=== PATIENT | male | born 1930 | race Caucasian/White ===

== ENCOUNTER 2016-08-25 12:12 | Inpatient (IN) | payer MEDICARE, OTHER ==
[~2016-08-25] VITALS: Ht 160 cm; Wt 65.0 kg
[2016-08-25] MEDS ORDERED: SODIUM CHLORIDE FLUSH 10 ML SYR IV PRN (12:45)
[2016-08-25] MEDS ORDERED: SODIUM CHLORIDE FLUSH 3 ML SYR IV PRN (12:45)
[2016-08-25 13:05] LABS: BASOPHILS % (AUTO) 0 % (0-2); EOSINOPHILS # (AUTO) 0.1 10^3uL; EOSINOPHILS % (AUTO) 1 % (0-4); LYMPHOCYTES # (AUTO) 1.1 X10^3; MEAN CORPUSCULAR HEMOGLOBIN 31.5 PG (26.0-34.0); MEAN CORPUSCULAR HGB CONC 32.4 g/dL (31.0-37.0); MEAN CORPUSCULAR VOLUME 97 FL (80-100); MEAN PLATELET VOLUME 10.6 FL (6.0-9.5); MONOCYTES # (AUTO) 1.2 X10^3; MONOCYTES % (AUTO) 12 % (3-11); NEUTROPHILS # (AUTO) 7.5 X10^3; NEUTROPHILS % (AUTO) 76 % (51-67); PLATELET COUNT 203 10^3uL (150-450); WHITE BLOOD COUNT 9.96 10^3uL (4.0-11.0)
[2016-08-25 13:15] LABS: ALBUMIN 4.4 g/dL (3.4-5.0); ANION GAP 16.4 MEQ/L (3-15); CALCULATED IONIZED CALCIUM 4.1 mg/dL (3.8-4.6); TOTAL PROTEIN 7.2 g/dL (6.4-8.5)
--- NOTE | 2016-08-25 14:01 | NUR ---
URINAL PLACED. PT STATES DIFFICULT TO URINATE BUT WILL LEAVE IN PLACE HE HAS THE URGE TO GO. CL
[2016-08-25 14:41] LABS: BILIRUBIN,URINE Negative (Negative); CLARITY,URINE Clear; COLOR,URINE Yellow; GLUCOSE, URINE (UA) Negative (Negative); LEUKOCYTE ESTERASE ,URINE Negative (Negative); UROBILINOGEN,URINE 0.2 mg/dL (0.2-1.0)
--- NOTE | 2016-08-25 14:45 | NUR ---
DR TIM TALKS WITH DR POSEY RE PT. FURTHER ORDERS NOTED. CL
--- NOTE | 2016-08-25 16:22 | NUR ---
Pt admitted to room 310 at this time via w/c from ED accompanied by Faisal HAZEL. Alert/oriented x4.
[2016-08-25 16:33] VITALS: BP 126/51
[2016-08-25] MEDS ORDERED: ALBUTEROL 0.083% NEB SOLUTION 2.5 MG/3 ML VIAL INH PRN (17:00)
[2016-08-25] MEDS ORDERED: MAGNESIUM HYDROXIDE 80MG/ML (MILK OF MAGNESIA) 30 ML UDC PO PRN (17:00)
[2016-08-25] MEDS ORDERED: methylPREDNISolone 125 MG (Solu-MEDROL) VIAL IV ONE (17:00)
[2016-08-25] MEDS ORDERED: HYDROcodone/APAP 7.5 MG/325 MG (NORCO) TABLET PO PRN (17:00)
[2016-08-25] MEDS ORDERED: PROMETHAZINE HCL INJ 12.5 MG in SODIUM CHLORIDE 25 ML IV PRN (17:00)
[2016-08-25] MEDS ORDERED: CALCIUM CARBONATE CHEWABLE 300 MG (TUMS) TABLET PO PRN ×2 (17:00)
[2016-08-25] MEDS ORDERED: DOCUSATE SODIUM 100 MG (COLACE) CAP PO PRN (17:00)
[2016-08-25] MEDS ORDERED: POLYETHYLENE GLYCOL 17 GM (MIRALAX) PACKET PO PRN (17:00)
[2016-08-25] MEDS ORDERED: MAG HYDROX/AL HYDROX/SIMETH 200-200-20/5 ML (MAG-AL PLUS) 30 ML UDC PO PRN ×2 (17:00)
[2016-08-25] MEDS ORDERED: ONDANSETRON 4 MG (ZOFRAN) ORAL DISSOLVE TAB PO PRN (17:00)
[2016-08-25] MEDS: POTASSIUM CHLORIDE ER 20 MEQ TABLET PO SCH (17:35)
--- NOTE | 2016-08-25 18:30 | NUR ---
Pt sitting upright on edge of bed- eating supper meal, watching tv Solu-medrol x1 IV given as ordered. Remains on chronic 2L nc- states he wears 2L O2 at all times. IV SL intact to RFA- 18g. Yellow gown/socks in place for pt safety. calls appropriately. Has been talking to and daughter on cell phone. Will cont to monitor patient closely.
[2016-08-25] MEDS: DOXYCYCLINE 100 MG (VIBRAMYCIN) TABLET PO SCH (18:54)
[2016-08-25] MEDS ORDERED: FLUTICASONE/SALMETEROL HFA 115/21 MCG (ADVAIR) COMMON CANNISTER INH ONE (19:03)
[2016-08-25] MEDS: ALBUTEROL/IPRATROPIUM 3MG-0.5MG/3ML (DUONEB) NEB VIAL INH SCH ×2 (19:07→23:01)
[2016-08-25] MEDS: FLUTICASONE/SALMETEROL HFA 115/21 MCG (ADVAIR) COMMON CANNISTER INH SCH (19:08)
--- NOTE | 2016-08-25 19:12 | NUR ---
Pt found sitting inn his chair on 2 l/min NC equal to home use, SPO2 98%, RR 20, HR 87. BS have wheezes in inspiration and expiration in bilateral upper lobes with clear and diminished bilateral lower lobes. Duoneb given via SVN and 2 p Advair 115/21 given via Spacer. BS have increased air movement post Tx.
[2016-08-25] MEDS: ATORVASTATIN 10 MG (LIPITOR) TABLET PO SCH (20:30)
[2016-08-25] MEDS: guaiFENesin ER 600 MG (MUCINEX) TAB PO SCH (20:30)
[2016-08-25 20:38] VITALS: BP 107/63
--- NOTE | 2016-08-25 23:03 | NUR ---
Pt found lying in bed on RA, SPO2 92%, HR 89, RR 16 and non labored. BS clear before and after Duoneb via SVN.
[2016-08-26] VITALS (7 sets, daily range): BP systolic 80–113; BP diastolic 41–64
[2016-08-26] MEDS: FLUTICASONE/SALMETEROL HFA 115/21 MCG (ADVAIR) COMMON CANNISTER INH SCH ×2 (05:36→17:21)
[2016-08-26] MEDS: ALBUTEROL/IPRATROPIUM 3MG-0.5MG/3ML (DUONEB) NEB VIAL INH SCH ×4 (05:36→22:40)
--- NOTE | 2016-08-26 05:39 | NUR ---
Pt found lying in bed on 2 l/min NC, SPO2 98%, HR 86, RR 14 with no distress at this time. BS clear before and after Duoneb and Advair 115/21.
--- NOTE | 2016-08-26 05:57 | NUR ---
Patient has had no complaints throughout night. Had periods of rest throughout night.
[2016-08-26 06:03] LABS: BASOPHILS % (AUTO) 0 % (0-2); EOSINOPHILS % (AUTO) 0 % (0-4); LYMPHOCYTES # (AUTO) 0.5 X10^3; MEAN CORPUSCULAR HEMOGLOBIN 31.1 PG (26.0-34.0); MEAN CORPUSCULAR HGB CONC 32.4 g/dL (31.0-37.0); MEAN CORPUSCULAR VOLUME 96 FL (80-100); MEAN PLATELET VOLUME 11.1 FL (6.0-9.5); MONOCYTES # (AUTO) 0.1 X10^3; MONOCYTES % (AUTO) 3 % (3-11); NEUTROPHILS # (AUTO) 3.2 X10^3; NEUTROPHILS % (AUTO) 85 % (51-67); PLATELET COUNT 170 10^3uL (150-450); WHITE BLOOD COUNT 3.76 10^3uL (4.0-11.0)
[2016-08-26] MEDS: PANTOPRAZOLE 40 MG (PROTONIX) TAB PO SCH (06:33)
[2016-08-26] MEDS: DOXYCYCLINE 100 MG (VIBRAMYCIN) TABLET PO SCH ×2 (06:33→18:13)
[2016-08-26 06:36] LABS: ALBUMIN 3.9 g/dL (3.4-5.0); ANION GAP 12.8 MEQ/L (3-15)
[2016-08-26] MEDS ORDERED: LOSARTAN 50 MG (COZAAR) TABLET PO SCH (09:00)
[2016-08-26] MEDS: predniSONE 20 MG (DELTASONE) TABLET PO SCH (09:08)
[2016-08-26] MEDS: ASPIRIN 81 MG CHEW (CHILDREN'S ASA) PO SCH (09:09)
[2016-08-26] MEDS: FUROSEMIDE 40 MG (LASIX) TAB PO SCH (09:09)
[2016-08-26] MEDS: POTASSIUM CHLORIDE ER 20 MEQ TABLET PO SCH ×2 (09:09→18:13)
[2016-08-26] MEDS: FINASTERIDE (PROSCAR) 5 MG TAB PO SCH (09:10)
[2016-08-26] MEDS: MONTELUKAST 10 MG (SINGULAIR) TAB PO SCH (09:10)
[2016-08-26] MEDS: guaiFENesin ER 600 MG (MUCINEX) TAB PO SCH ×2 (09:10→20:34)
[2016-08-26] MEDS: TAMSULOSIN 0.4 MG (FLOMAX) CAP PO SCH (09:10)
[2016-08-26] MEDS: ENOXAPARIN 40 MG/0.4 ML (LOVENOX) SYR SC SCH (09:10)
--- NOTE | 2016-08-26 10:18 | NUR ---
Pt. sitting up on side of bed. Denies pain or dyspnea. Tab alarm on. Pt. can be impulsive and get up without help at times. Wheezing noted to posterior upper lobes and bilateral lower lobes. HR regular, but with occasional irregular beats noted. Pt. denies needs at this time.
[2016-08-26 12:14] LABS: URINE CENTRIFUGED VOLUME 12 mL
[2016-08-26 12:15] LABS: RBC,URINE 0-2 /HPF
--- NOTE | 2016-08-26 17:21 | NUR ---
Pt. refusing to wear yellow gown or have alarms used. Order has been noted to DC high fall risk per pt. request. Have been rounding more frequently on pt., at least every 30 mins.
--- NOTE | 2016-08-26 17:24 | NUR ---
O2 @ 2L nc, 96%. BS ess. clear, good NPC with tx's. Advair 115\21 given at 1725 with Kim.
--- NOTE | 2016-08-26 20:05 | NUR ---
Pt. ambulating hallway with use of walker and stand by assist of HEARING STENOGRAPHER. Pt. laughs and jokes with staff.
[2016-08-26] MEDS: ATORVASTATIN 10 MG (LIPITOR) TABLET PO SCH (20:34)
[2016-08-26] MEDS: ACETAMINOPHEN 325 MG TAB (TYLENOL) PO PRN (20:39)
--- NOTE | 2016-08-26 20:40 | NUR ---
Tylenol 650 mg PO given for general aches; "sore throat". Pt. takes all PO meds without difficulty; remains 'busy' in room; pleasant and cooperative. Pt. refuses tabs/bed alarm for safety; does agree to keeping yellow socks on. This nurse and staff check pt. frequently. Call light and H2O within reach.
--- NOTE | 2016-08-26 22:43 | NUR ---
PT is sitting on edge of bed, alert and awake, tolerated tx well. BS are clear, pt on 2L, SPO2 98%.
--- NOTE | 2016-08-26 22:50 | NUR ---
Pt. ambulates hallway with walker; brisk pace; O2 at 2L via NC; pt. very conversational; slightly short of air upon return; sits at edge of bed.
[2016-08-27] VITALS (7 sets, daily range): BP systolic 61–100; BP diastolic 41–65
[2016-08-27] MEDS: ALBUTEROL/IPRATROPIUM 3MG-0.5MG/3ML (DUONEB) NEB VIAL INH SCH ×4 (05:05→22:28)
[2016-08-27] MEDS: FLUTICASONE/SALMETEROL HFA 115/21 MCG (ADVAIR) COMMON CANNISTER INH SCH ×2 (05:06→17:06)
[2016-08-27] MEDS: PANTOPRAZOLE 40 MG (PROTONIX) TAB PO SCH (06:26)
[2016-08-27] MEDS: DOXYCYCLINE 100 MG (VIBRAMYCIN) TABLET PO SCH ×2 (06:26→18:14)
--- NOTE | 2016-08-27 06:30 | NUR ---
Pt. awake; alert & very conversational. Pt. slept in short intervals last night; up and down to use urinal or just dozing. Discussed options for tonight; encouraged pt. to verbalize needs if PRN pain meds could help. O2 remains at 2L via NC; pt. ready to ambulate again. Pt. is a Fall Risk but refuses yellow gown and also to have tabs/bed alarm on; physician aware. Pt. ambulates about room frequently; rearranges personal possessions often; is very conversational with staff passing by room or in the kitchen (pt.'s room directly across from kitchen). Call light and H2O within reach. Pt. currently drinking coffee.
[2016-08-27 06:46] LABS: BASOPHILS % (AUTO) 0 % (0-2); EOSINOPHILS % (AUTO) 0 % (0-4); LYMPHOCYTES # (AUTO) 1.2 X10^3; MEAN CORPUSCULAR HEMOGLOBIN 31.2 PG (26.0-34.0); MEAN CORPUSCULAR HGB CONC 32.6 g/dL (31.0-37.0); MEAN CORPUSCULAR VOLUME 96 FL (80-100); MEAN PLATELET VOLUME 11.6 FL (6.0-9.5); MONOCYTES % (AUTO) 11 % (3-11); NEUTROPHILS # (AUTO) 6.3 X10^3; NEUTROPHILS % (AUTO) 75 % (51-67); PLATELET COUNT 171 10^3uL (150-450); WHITE BLOOD COUNT 8.46 10^3uL (4.0-11.0)
[2016-08-27] MEDS: FINASTERIDE (PROSCAR) 5 MG TAB PO SCH (09:00)
[2016-08-27] MEDS: ASPIRIN 81 MG CHEW (CHILDREN'S ASA) PO SCH (09:00)
[2016-08-27] MEDS: FUROSEMIDE 40 MG (LASIX) TAB PO SCH (09:00)
[2016-08-27] MEDS: guaiFENesin ER 600 MG (MUCINEX) TAB PO SCH ×2 (09:00→20:25)
[2016-08-27] MEDS: POTASSIUM CHLORIDE ER 20 MEQ TABLET PO SCH ×2 (09:00→17:30)
[2016-08-27] MEDS: predniSONE 20 MG (DELTASONE) TABLET PO SCH (09:01)
[2016-08-27] MEDS: MONTELUKAST 10 MG (SINGULAIR) TAB PO SCH (09:01)
[2016-08-27] MEDS: ENOXAPARIN 40 MG/0.4 ML (LOVENOX) SYR SC SCH (09:02)
[2016-08-27] MEDS: TAMSULOSIN 0.4 MG (FLOMAX) CAP PO SCH (10:28)
--- NOTE | 2016-08-27 17:43 | NUR ---
BS are clear, O2 @2 L nc, 98%.
[2016-08-27] MEDS: ACETAMINOPHEN 325 MG TAB (TYLENOL) PO PRN (18:15)
--- NOTE | 2016-08-27 18:21 | NUR ---
Patient has walked in the rosa with O2, a walker, and stand by assist of a RANCH MANAGER several times today. Fatigues easily. Attempted to educate on energy conservation as disease process continues to progress.
[2016-08-27] MEDS: ATORVASTATIN 10 MG (LIPITOR) TABLET PO SCH (20:25)
--- NOTE | 2016-08-27 22:30 | NUR ---
Pt found on 2 l/min NC, SPO2 97%, HR 90, RR 18 with clear before and after Duoneb via SVN
[2016-08-28 04:42] VITALS: BP 89/58
[2016-08-28] MEDS: FLUTICASONE/SALMETEROL HFA 115/21 MCG (ADVAIR) COMMON CANNISTER INH SCH ×2 (05:34→17:26)
[2016-08-28] MEDS: ALBUTEROL/IPRATROPIUM 3MG-0.5MG/3ML (DUONEB) NEB VIAL INH SCH ×4 (05:34→22:09)
--- NOTE | 2016-08-28 05:37 | NUR ---
Pt found on 2 l/min NC, SPO2 99%, HR 76, RR 18 with clear before and after Duoneb via SVN and 2p Advair 115/21 via Spacer.
[2016-08-28] MEDS: DOXYCYCLINE 100 MG (VIBRAMYCIN) TABLET PO SCH ×2 (06:15→18:12)
--- NOTE | 2016-08-28 06:15 | NUR ---
Pt. takes PO meds without difficulty; requests coffee; very conversational. Pt. slept in longer intervals than previous night although awakens early to start his day. Pt. experiences shortness of breath with activity; O2 at 2L via NC. Pt. insists on independence although safety issues a major concern with his ambulation about room and refusal to wear yellow gown/implement tabs or bed alarm. This nurse charts at door side whenever possible to be close at hand PRN. Pt. utilizes urinal at bedside; call light and drinks within reach.
[2016-08-28] MEDS: PANTOPRAZOLE 40 MG (PROTONIX) TAB PO SCH (06:16)
[2016-08-28 06:38] LABS: ANION GAP 14.4 MEQ/L (3-15); BASOPHILS % (AUTO) 0 % (0-2); EOSINOPHILS % (AUTO) 0 % (0-4); LYMPHOCYTES # (AUTO) 1.2 X10^3; MEAN CORPUSCULAR HGB CONC 33.2 g/dL (31.0-37.0); MEAN CORPUSCULAR VOLUME 95 FL (80-100); MEAN PLATELET VOLUME 11.5 FL (6.0-9.5); MONOCYTES % (AUTO) 12 % (3-11); NEUTROPHILS % (AUTO) 73 % (51-67); PLATELET COUNT 177 10^3uL (150-450); WHITE BLOOD COUNT 8.26 10^3uL (4.0-11.0)
[2016-08-28 06:41] LABS: MEAN CORPUSCULAR HEMOGLOBIN 31.7 PG (26.0-34.0)
[2016-08-28 08:00] VITALS: BP 116/62
[2016-08-28] MEDS: POTASSIUM CHLORIDE ER 20 MEQ TABLET PO SCH ×2 (09:04→18:12)
[2016-08-28] MEDS: MONTELUKAST 10 MG (SINGULAIR) TAB PO SCH (09:04)
[2016-08-28] MEDS: FINASTERIDE (PROSCAR) 5 MG TAB PO SCH (09:04)
[2016-08-28] MEDS: TAMSULOSIN 0.4 MG (FLOMAX) CAP PO SCH (09:04)
[2016-08-28] MEDS: ASPIRIN 81 MG CHEW (CHILDREN'S ASA) PO SCH (09:04)
[2016-08-28] MEDS: FUROSEMIDE 40 MG (LASIX) TAB PO SCH (09:04)
[2016-08-28] MEDS: guaiFENesin ER 600 MG (MUCINEX) TAB PO SCH ×2 (09:04→20:29)
[2016-08-28] MEDS: predniSONE 20 MG (DELTASONE) TABLET PO SCH (09:05)
[2016-08-28] MEDS: ENOXAPARIN 40 MG/0.4 ML (LOVENOX) SYR SC SCH (09:05)
[2016-08-28 12:00] VITALS: BP 95/49
[2016-08-28 16:00] VITALS: BP 93/60
[2016-08-28] MEDS: ACETAMINOPHEN 325 MG TAB (TYLENOL) PO PRN (18:12)
--- NOTE | 2016-08-28 19:40 | NUR ---
Staff continue to express concerns about the patient's safety with ambulation. He will allow stand by assist when ambulating the halls but will not accept help in the room. He is not receptive to teaching regarding safety issues and new ways to do things.
[2016-08-28 19:48] VITALS: BP 105/68
[2016-08-28] MEDS: ATORVASTATIN 10 MG (LIPITOR) TABLET PO SCH (20:29)
--- NOTE | 2016-08-28 22:11 | NUR ---
Pt found sitting in bed on 2 l/min NC, SPO2 96%, HR 85, RR 16 and non labored. BS clear before and after Duoneb via SVN. Pt has been up walking the halls.
--- NOTE | 2016-08-28 23:00 | NUR ---
Pt. slept for an interval from 7-11p; continues to ambulate about room PRN; has walked in hallway with OUTSIDE ENERGY SALES REPRESENTATIVES. Pt. exhibits shortness of air when mobile; sits at edge of bed when awake to work on puzzles or watch sports on tv. Pt. states his "bronchitis is kicking up again". Lung sounds unchanged from earlier assessment; pt. coughs rarely. Pt. very conversational with all staff. Fall Risk sign posted at doorway; much vigilance on each shift to oversee safety issues with pt. (R/T refusal to wear yellow gown; refusal to allow staff to use tabs or bed alarm). Pt. states he plans to "stay here for rehab". Call light and H2O within reach.
--- NOTE | 2016-08-28 23:30 | NUR ---
Report given to Patience/YASEMIN; care relinquished.
[2016-08-28 23:45] VITALS: BP 100/62
[2016-08-29 04:00] VITALS: BP 100/60
[2016-08-29] MEDS: FLUTICASONE/SALMETEROL HFA 115/21 MCG (ADVAIR) COMMON CANNISTER INH SCH (05:05)
[2016-08-29] MEDS: ALBUTEROL/IPRATROPIUM 3MG-0.5MG/3ML (DUONEB) NEB VIAL INH SCH ×2 (05:05→11:10)
--- NOTE | 2016-08-29 05:07 | NUR ---
Pt found sitting on the side of his bed on 2 l/min NC, SPO2 98%, HR 80, RR 16 with clear BS throughout all lung [place] before and after Duoneb via SVN and 2p Advair 115/21 via Spacer. Pt has strong NPC.
--- NOTE | 2016-08-29 05:16 | NUR ---
Pt rested well this shift. Skin warm, dry, intact. Resprs nonlabored, even on 2L NC. Uses urinal at bedside. Pt denies needs.
[2016-08-29] MEDS: PANTOPRAZOLE 40 MG (PROTONIX) TAB PO SCH (06:20)
[2016-08-29] MEDS: DOXYCYCLINE 100 MG (VIBRAMYCIN) TABLET PO SCH (06:20)
--- NOTE | 2016-08-29 07:45 | NUR ---
Pt sitting upright on edge of bed, watching tv- awaiting bfst meal. Remains on 2L nc. Alert/oriented, talking and joking with nursing staff. Denies needs. States he is feeling "back to my normal." 18g SL intact to RFA.
[2016-08-29 08:00] VITALS: BP 80/60
--- NOTE | 2016-08-29 08:18 | NUR ---
NUTRITION ASSESSMENT Level 1 Patient: Riki Vincent Age/Sex: 86/M Date Screened: 08-29-16 Weight: 143#/65 kg Height: 63 inches Primary Diagnosis: dyspnea, hypoxia Diet Order: 2 g. sodium Relevant labs: N/A Food allergies: N Nutrition Assessment Criteria Age over 80: 4 points Body Mass Index (BMI) under 19: N Admission Screening Indicates Risk? N Moderate/High Risk Diagnosis: N TPN or PPN: N NPO or clear liquid diet: N Serum Glucose <70 or >180: N/A Hgb A1c >6.7: N/A Total: 4 points Risk Screen: __ Patient at low nutritional risk based on available data; reevaluate in 5-7 days _X_ Patient at moderate nutritional risk based on available data; reevaluate in 3-5 days __ Patient at high nutritional risk; complete Nutrition Assessment within 48 hours of admission. Comments: Weight has been stable (142# in Nov, 2015); no GI concerns; good appetite--eating 75-100%. Plan is to go to skilled for rehab after acute admission. Will reassess as documented above.
[2016-08-29] MEDS: predniSONE 20 MG (DELTASONE) TABLET PO SCH (08:37)
[2016-08-29] MEDS: FUROSEMIDE 40 MG (LASIX) TAB PO SCH (08:37)
[2016-08-29] MEDS: guaiFENesin ER 600 MG (MUCINEX) TAB PO SCH (08:37)
[2016-08-29] MEDS: ENOXAPARIN 40 MG/0.4 ML (LOVENOX) SYR SC SCH (08:37)
[2016-08-29] MEDS: ASPIRIN 81 MG CHEW (CHILDREN'S ASA) PO SCH (08:37)
[2016-08-29] MEDS: MONTELUKAST 10 MG (SINGULAIR) TAB PO SCH (08:37)
[2016-08-29] MEDS: POTASSIUM CHLORIDE ER 20 MEQ TABLET PO SCH (08:37)
[2016-08-29] MEDS: FINASTERIDE (PROSCAR) 5 MG TAB PO SCH (08:38)
[2016-08-29] MEDS: TAMSULOSIN 0.4 MG (FLOMAX) CAP PO SCH (10:29)
--- NOTE | 2016-08-29 11:23 | NUR ---
Pt took all AM meds without difficulty. Ambulated to/from shower with SBA using own walker. Remains on 2L nc which is his home dose of O2. IV SL intact to RFA. Pt dismissed to Swingbed at this time.
== END 2016-08-29 11:23 | disposition swing bed (61) | DRG 189 ==
LOC: EDUNIT# 12:12 → ED 12:14 → MED/SURG 15:38
PROVIDERS: ADMIT Internal Medicine; ATTEND Internal Medicine
DX: J96.21 Acute and chronic respiratory failure with hypoxia (principal); J44.1 Chronic obstructive pulmonary disease with (acute) exacerbation; I50.32 Chronic diastolic (congestive) heart failure; Z66 Do not resuscitate; I11.0 Hypertensive heart disease with heart failure; I27.2 Other secondary pulmonary hypertension; N40.0 Benign prostatic hyperplasia without lower urinary tract symptoms; I25.10 Atherosclerotic heart disease of native coronary artery without angina pectoris; K21.9 Gastro-esophageal reflux disease without esophagitis; K59.00 Constipation, unspecified; Z95.5 Presence of coronary angioplasty implant and graft
CPT/HCPCS: 36415; 71010; 80048; 80053; 80069; 81003; 81015; 82550; 82553; 83880; 84484; 85025; 85610; 85730; 86140; 87070; 87205; 87486; 87581; 87633; 87798; 93005; 93010; 94640; 94760; 99285

== ENCOUNTER 2016-08-29 11:23 | Inpatient (IN) | payer MEDICARE, OTHER ==
[~2016-08-29] VITALS: Ht 160 cm; Wt 64.7 kg
--- NOTE | 2016-08-29 11:23 | NUR ---
Pt admitted to Swingbed status in room 310 at this time.
[2016-08-29 12:00] VITALS: BP 98/62
[2016-08-29 12:22] VITALS: BP 80/60
--- NOTE | 2016-08-29 12:25 | NUR ---
After showering- patient in room dressing self indep into home clothes.
[2016-08-29] MEDS ORDERED: SODIUM CHLORIDE FLUSH 10 ML SYR IV PRN (12:45)
[2016-08-29] MEDS ORDERED: DOCUSATE SODIUM 100 MG (COLACE) CAP PO PRN (12:45)
[2016-08-29] MEDS ORDERED: MAGNESIUM HYDROXIDE 80MG/ML (MILK OF MAGNESIA) 30 ML UDC PO PRN (12:45)
[2016-08-29] MEDS ORDERED: SODIUM CHLORIDE FLUSH 3 ML SYR IV PRN (12:45)
[2016-08-29] MEDS ORDERED: POLYETHYLENE GLYCOL 17 GM (MIRALAX) PACKET PO PRN (12:45)
[2016-08-29] MEDS ORDERED: ALBUTEROL 0.083% NEB SOLUTION 2.5 MG/3 ML VIAL INH PRN (12:45)
[2016-08-29] MEDS ORDERED: MAG HYDROX/AL HYDROX/SIMETH 200-200-20/5 ML (MAG-AL PLUS) 30 ML UDC PO PRN (12:45)
[2016-08-29] MEDS ORDERED: CALCIUM CARBONATE CHEWABLE 300 MG (TUMS) TABLET PO PRN (12:45)
[2016-08-29] MEDS ORDERED: ONDANSETRON 4 MG (ZOFRAN) ORAL DISSOLVE TAB PO PRN (12:45)
[2016-08-29] MEDS ORDERED: ACETAMINOPHEN 325 MG TAB (TYLENOL) PO PRN (12:45)
--- NOTE | 2016-08-29 13:22 | NUR ---
IV dc'd per orders from RFA- 18g . Tip intact, site without redness/swelling. No bleeding noted.
--- NOTE | 2016-08-29 14:10 | NUR ---
MULTIDISCIPLINARY MTG/DR. BLUE: Pt. was resistant to going to a facility for skilled care. Due to Pt. being at risk for readmission and he would benefit from skilled care he was skilled at the hospital today. Pt. will possibly be discharged Monday. No discharge needs identified at this time.
--- NOTE | 2016-08-29 14:19 | NUR ---
IV SL dc'd to RFA for dismissal. 22g IV. No bleeding noted at site, tip intact. Addendum: 08/29/16 at 1421 by Angella Reyes RN Disregard above noted- wrong patient.
[2016-08-29 16:16] VITALS: BP 84/58
[2016-08-29] MEDS: ALBUTEROL/IPRATROPIUM 3MG-0.5MG/3ML (DUONEB) NEB VIAL INH SCH ×2 (17:14→23:17)
[2016-08-29] MEDS: POTASSIUM CHLORIDE ER 20 MEQ TABLET PO SCH (17:27)
[2016-08-29] MEDS: DOXYCYCLINE 100 MG (VIBRAMYCIN) TABLET PO SCH (18:08)
[2016-08-29] MEDS ORDERED: FLUTICASONE/SALMETEROL HFA 115/21 MCG (ADVAIR) COMMON CANNISTER INH ONE (18:16)
[2016-08-29] MEDS: FLUTICASONE/SALMETEROL HFA 115/21 MCG (ADVAIR) COMMON CANNISTER INH SCH (18:17)
--- NOTE | 2016-08-29 18:32 | NUR ---
Pt moved to room 309 for maintenance purposes this afternoon. Pt indep in room. PT came to walk halls with him multiple laps with his own wheeled walker from home.
--- NOTE | 2016-08-29 19:06 | NUR ---
O2 @ 2L nc, 96%. BS are clear.
[2016-08-29 20:06] VITALS: BP 115/64
--- NOTE | 2016-08-29 20:21 | NUR ---
Pt is sitting up on edge of bed working on crossword puzzle, alert and oriented x 4, Resp are even and nonlabored, LCTAB, continues to wear O2 via NC at 2LPM, HRRR, BS are active x 4 quadrants. No IV access at this time. Denies pain or discomfort at this time. Pt has been up ambulating in hallway with walker several times. Call light is in reach, will continue to monitor.
[2016-08-29] MEDS: guaiFENesin ER 600 MG (MUCINEX) TAB PO SCH (21:00)
[2016-08-29] MEDS: ATORVASTATIN 10 MG (LIPITOR) TABLET PO SCH (21:00)
--- NOTE | 2016-08-29 23:20 | NUR ---
Pt found sitting in bed on 2 l/min NC, SPO2 98%, HR 78, RR 18 and non labored. BS clear before and after Duoneb via SVN which was tolerated well.
--- NOTE | 2016-08-30 04:04 | NUR ---
Pt has been resting in bed asleep since approximately 2200, Resp are even and nonlabored. Has not complained of pain or needs during this shift. Call light is in reach, will continue to monitor.
[2016-08-30] MEDS: ALBUTEROL/IPRATROPIUM 3MG-0.5MG/3ML (DUONEB) NEB VIAL INH SCH ×4 (05:20→22:02)
[2016-08-30] MEDS: FLUTICASONE/SALMETEROL HFA 115/21 MCG (ADVAIR) COMMON CANNISTER INH SCH ×2 (05:20→17:32)
--- NOTE | 2016-08-30 05:23 | NUR ---
Pt found sleeping in bed on 2 l/min NC, SPO2 98%, HR 87, RR 14 and non labored with clear BS before and after Duoneb via SVN and 2p Advair 115/21.
[2016-08-30] MEDS ORDERED: PANTOPRAZOLE 40 MG (PROTONIX) TAB PO ONE (05:43)
[2016-08-30] MEDS: PANTOPRAZOLE 40 MG (PROTONIX) TAB PO SCH (05:54)
[2016-08-30] MEDS: DOXYCYCLINE 100 MG (VIBRAMYCIN) TABLET PO SCH ×2 (05:54→18:11)
[2016-08-30 07:40] VITALS: BP 105/58
[2016-08-30] MEDS ORDERED: LOSARTAN 50 MG (COZAAR) TABLET PO SCH (09:00)
[2016-08-30] MEDS: POTASSIUM CHLORIDE ER 20 MEQ TABLET PO SCH ×2 (09:20→18:11)
[2016-08-30] MEDS: LOSARTAN 25 MG (COZAAR) TABLET PO SCH (09:20)
[2016-08-30] MEDS: FUROSEMIDE 40 MG (LASIX) TAB PO SCH (09:20)
--- NOTE | 2016-08-30 09:20 | NUR ---
Gave half of the 50mg. Cozaar tablet pulled from [employer]. Discussed patient's frequent low afternoon BP's with the doctor and decision was made to decrease a.m. dose.
[2016-08-30] MEDS: MONTELUKAST 10 MG (SINGULAIR) TAB PO SCH (09:21)
[2016-08-30] MEDS: ASPIRIN 81 MG CHEW (CHILDREN'S ASA) PO SCH (09:21)
[2016-08-30] MEDS: FINASTERIDE (PROSCAR) 5 MG TAB PO SCH (09:21)
[2016-08-30] MEDS: guaiFENesin ER 600 MG (MUCINEX) TAB PO SCH ×2 (09:21→21:49)
[2016-08-30] MEDS: TAMSULOSIN 0.4 MG (FLOMAX) CAP PO SCH (09:21)
[2016-08-30] MEDS: ENOXAPARIN 40 MG/0.4 ML (LOVENOX) SYR SC SCH (09:24)
[2016-08-30 16:07] VITALS: BP 101/57
--- NOTE | 2016-08-30 17:35 | NUR ---
BS are clear. O2 @ 2L nc, home order.
--- NOTE | 2016-08-30 19:30 | NUR ---
Pt was just up walking in hallway, and is now in room watching tv, alert and oriented x 4, Resp are even and nonlabored, LCTAB, continues to wear O2 via NC at 2LPM, HRRR, BS are active x 4 quadrants. No IV access at this time. Denies pain or discomfort at this time. Call light is in reach, will continue to monitor.
--- NOTE | 2016-08-30 19:45 | NUR ---
Afternoon BP was 101/57- an improvement over low afternoon readings of 80's systolically over the weekend. Cozaar dose was decreased by half today. Lasix remains the same. O2 use remains at 2 liters- unchanged for multiple days.
[2016-08-30] MEDS: ATORVASTATIN 10 MG (LIPITOR) TABLET PO SCH (21:49)
--- NOTE | 2016-08-30 22:03 | NUR ---
Pt found sitting on the side of his bed, SPO2 96%, HR 61, RR 16 and non labored with clear BS before and after Duoneb via SVN.
--- NOTE | 2016-08-31 04:44 | NUR ---
Pt has been resting in bed asleep most of shift, Resp are even and nonlabored. Has denied pain or needs during this shift. Call light is in reach, will continue to monitor.
[2016-08-31] MEDS: PANTOPRAZOLE 40 MG (PROTONIX) TAB PO SCH (06:10)
[2016-08-31] MEDS: DOXYCYCLINE 100 MG (VIBRAMYCIN) TABLET PO SCH ×2 (06:10→18:23)
[2016-08-31] MEDS: ALBUTEROL/IPRATROPIUM 3MG-0.5MG/3ML (DUONEB) NEB VIAL INH SCH ×4 (07:28→20:07)
[2016-08-31] MEDS: FLUTICASONE/SALMETEROL HFA 115/21 MCG (ADVAIR) COMMON CANNISTER INH SCH ×2 (07:29→20:07)
[2016-08-31 07:30] VITALS: BP 137/88
[2016-08-31] MEDS: ENOXAPARIN 40 MG/0.4 ML (LOVENOX) SYR SC SCH (08:54)
[2016-08-31] MEDS: TAMSULOSIN 0.4 MG (FLOMAX) CAP PO SCH (08:54)
[2016-08-31] MEDS: FUROSEMIDE 40 MG (LASIX) TAB PO SCH (08:54)
[2016-08-31] MEDS: FINASTERIDE (PROSCAR) 5 MG TAB PO SCH (08:54)
[2016-08-31] MEDS: MONTELUKAST 10 MG (SINGULAIR) TAB PO SCH (08:54)
[2016-08-31] MEDS: LOSARTAN 25 MG (COZAAR) TABLET PO SCH (08:54)
[2016-08-31] MEDS: guaiFENesin ER 600 MG (MUCINEX) TAB PO SCH ×2 (08:54→21:29)
[2016-08-31] MEDS: ASPIRIN 81 MG CHEW (CHILDREN'S ASA) PO SCH (08:54)
[2016-08-31] MEDS: POTASSIUM CHLORIDE ER 20 MEQ TABLET PO SCH ×2 (08:54→18:23)
[2016-08-31] MEDS: HYDROcodone/APAP 7.5 MG/325 MG (NORCO) TABLET PO PRN ×2 (08:59→21:29)
[2016-08-31 15:42] VITALS: BP 102/62
--- NOTE | 2016-08-31 16:25 | NUR ---
Afternoon BP= 102/62. Patient has not had low afternoon BP's since cozaar was decreased. He continues to be unreceptive to safety teaching regarding ambulation and quick position changes.
[2016-08-31] MEDS: ATORVASTATIN 10 MG (LIPITOR) TABLET PO SCH (21:30)
--- NOTE | 2016-08-31 21:30 | NUR ---
Has been ambulating in [employer]. Does well using rolling walker. [place] 7.5 administered for right leg and knee pain. Oxygen on at 2 liters per NC. No respiratort distress noted after ambulation. Watchinh ballgame on TV. No concerns voiced.
[2016-09-01] MEDS: PANTOPRAZOLE 40 MG (PROTONIX) TAB PO SCH (06:12)
[2016-09-01] MEDS: DOXYCYCLINE 100 MG (VIBRAMYCIN) TABLET PO SCH ×2 (06:12→17:45)
--- NOTE | 2016-09-01 06:30 | NUR ---
Rested well last night. Is dressed in casual clothes for the day. Oxygen remains on at 2 liters. Denies any discomforts this morning. Drinking coffee. Watching TV. No needs at this time.
[2016-09-01] MEDS: ALBUTEROL/IPRATROPIUM 3MG-0.5MG/3ML (DUONEB) NEB VIAL INH SCH ×4 (07:44→20:20)
[2016-09-01] MEDS: FLUTICASONE/SALMETEROL HFA 115/21 MCG (ADVAIR) COMMON CANNISTER INH SCH ×2 (07:45→20:20)
--- NOTE | 2016-09-01 07:52 | NUR ---
BS clear this morning, SpO2 97% on Room Air.
[2016-09-01 08:00] VITALS: BP 100/60
--- NOTE | 2016-09-01 08:48 | NUR ---
Pt working with OT at this time.
[2016-09-01] MEDS: LOSARTAN 25 MG (COZAAR) TABLET PO SCH (09:32)
[2016-09-01] MEDS: ENOXAPARIN 40 MG/0.4 ML (LOVENOX) SYR SC SCH (09:32)
[2016-09-01] MEDS: FUROSEMIDE 40 MG (LASIX) TAB PO SCH (09:32)
[2016-09-01] MEDS: guaiFENesin ER 600 MG (MUCINEX) TAB PO SCH ×2 (09:32→21:39)
[2016-09-01] MEDS: MONTELUKAST 10 MG (SINGULAIR) TAB PO SCH (09:32)
[2016-09-01] MEDS: FINASTERIDE (PROSCAR) 5 MG TAB PO SCH (09:33)
[2016-09-01] MEDS: ASPIRIN 81 MG CHEW (CHILDREN'S ASA) PO SCH (09:33)
[2016-09-01] MEDS: POTASSIUM CHLORIDE ER 20 MEQ TABLET PO SCH ×2 (09:33→17:45)
[2016-09-01] MEDS: HYDROcodone/APAP 7.5 MG/325 MG (NORCO) TABLET PO PRN ×2 (09:34→21:38)
[2016-09-01] MEDS: TAMSULOSIN 0.4 MG (FLOMAX) CAP PO SCH (10:16)
--- NOTE | 2016-09-01 11:34 | NUR ---
MULTIDISCIPLINARY MTG/DR. ALCARZA: Dr. Alcaraz will discuss with Pt. about planning for alternative living arrangements for him and him. Pt. has been resistant to any suggestions from PT/OT regarding how to keep him safety. Plan for Pt. to discharge home tomorrow. No discharge needs identified at this time.
--- NOTE | 2016-09-01 14:18 | NUR ---
Pt ambulated multiple laps in halls with Pamela Looney PT.
--- NOTE | 2016-09-01 15:45 | NUR ---
Nutrition Follow Up: Patient is eating well, 100% at most meals. Bowels are moving. Noted possible DC home tomorrow, or to assisted living for his safety. Weight today: 142.7#/64.9 kg--this is maintained from admission Labs: N/A 1. No changes recommended at this time. Will continue to provide 2 g. sodium diet as ordered and monitor intake for adequacy.
--- NOTE | 2016-09-01 18:27 | NUR ---
Pt ambulated halls x1 lap indep without c/o. uses walker from home. Remains on 2L nc at all times. Eating supper meal. Talked on phone several times to and daughter. Jokes with staff and expressed thanks for care received.
[2016-09-01] MEDS: ATORVASTATIN 10 MG (LIPITOR) TABLET PO SCH (21:39)
[2016-09-02] MEDS: PANTOPRAZOLE 40 MG (PROTONIX) TAB PO SCH (06:01)
[2016-09-02] MEDS: DOXYCYCLINE 100 MG (VIBRAMYCIN) TABLET PO SCH (06:02)
--- NOTE | 2016-09-02 06:30 | NUR ---
Patient rested well tonight. At HS had [place] 7.5mg and Tylenol for right knee discomfort. Takes medications without difficulty. Oxygen on at 2 liters per NC. No discomforts voiced. Anxious to go home today. Has an appointment with Dr Willoughby in the clinic today, for steroid injection. In good spirits this morning. Call light within reach.
[2016-09-02] MEDS: FLUTICASONE/SALMETEROL HFA 115/21 MCG (ADVAIR) COMMON CANNISTER INH SCH (07:36)
[2016-09-02] MEDS: ALBUTEROL/IPRATROPIUM 3MG-0.5MG/3ML (DUONEB) NEB VIAL INH SCH ×3 (07:36→15:53)
--- NOTE | 2016-09-02 07:40 | NUR ---
Pt found on 2 l/min NC, SPO2 96%, HR 87, RR 16 with slightly coarse BS before Duoneb via SVN ans 2p Advair 115/21 via Spacer. Tx tolerated well and mouth rinsed. Pt encouraged to cough, Decreased coarseness post Tx.
--- NOTE | 2016-09-02 07:52 | NUR ---
Pt sitting on edge of bed, finishing dressing before eating bfst tray. Pt more SOA this AM- Resp even, tachy at 26/min with activity- when nurse commented that he sounds more short winded, he states "yea, just not like home. Can't get out of this bed as easy but it comes back quick." BLE 1+ edema today, non-pitting. remains on 2L nc. Raul RT just came out of room from assessing. Pt singing and making his usual noises. In good spirits and jokes around with staff. No IV. Call light within reach. calls appropriately for assist. Will cont to monitor.
[2016-09-02 08:21] VITALS: BP 120/70
[2016-09-02] MEDS: ENOXAPARIN 40 MG/0.4 ML (LOVENOX) SYR SC SCH (08:45)
[2016-09-02] MEDS: FUROSEMIDE 40 MG (LASIX) TAB PO SCH (08:46)
[2016-09-02] MEDS: guaiFENesin ER 600 MG (MUCINEX) TAB PO SCH (08:46)
[2016-09-02] MEDS: ASPIRIN 81 MG CHEW (CHILDREN'S ASA) PO SCH (08:46)
[2016-09-02] MEDS: FINASTERIDE (PROSCAR) 5 MG TAB PO SCH (08:46)
[2016-09-02] MEDS: POTASSIUM CHLORIDE ER 20 MEQ TABLET PO SCH (08:46)
[2016-09-02] MEDS: MONTELUKAST 10 MG (SINGULAIR) TAB PO SCH (08:46)
[2016-09-02] MEDS: LOSARTAN 25 MG (COZAAR) TABLET PO SCH (08:46)
[2016-09-02] MEDS: TAMSULOSIN 0.4 MG (FLOMAX) CAP PO SCH (10:12)
--- NOTE | 2016-09-02 10:15 | NUR ---
Pt sitting on toilet- states he is constipated- requested stool medications: gave MOM and COlace along with prune juice.
[2016-09-02 10:48] LABS: BASOPHILS % (AUTO) 0 % (0-2); EOSINOPHILS # (AUTO) 0.3 10^3uL; EOSINOPHILS % (AUTO) 2 % (0-4); MEAN CORPUSCULAR HGB CONC 33.7 g/dL (31.0-37.0); MEAN CORPUSCULAR VOLUME 94 FL (80-100); MEAN PLATELET VOLUME 10.3 FL (6.0-9.5); MONOCYTES # (AUTO) 1.3 X10^3; MONOCYTES % (AUTO) 12 % (3-11); NEUTROPHILS # (AUTO) 8.3 X10^3; NEUTROPHILS % (AUTO) 77 % (51-67); PLATELET COUNT 223 10^3uL (150-450); WHITE BLOOD COUNT 10.78 10^3uL (4.0-11.0)
[2016-09-02 10:54] LABS: MEAN CORPUSCULAR HEMOGLOBIN 31.8 PG (26.0-34.0)
[2016-09-02 11:05] LABS: ANION GAP 14.3 MEQ/L (3-15)
[2016-09-02] MEDS ORDERED: FUROSEMIDE 40 MG (LASIX) TAB PO ONE (11:25)
--- NOTE | 2016-09-02 11:35 | NUR ---
I entered the room room to work with Riki and he had just returned from the restroom. He was short of breath with a RR of about 30 which recovered to 20 within about two minutes with some distraction. SPO2 96% on 2 l/min NC equal to home use, HR 58. Pt has essentially clear BS before and after Duoneb via SVN which was tolerated well.
--- NOTE | 2016-09-02 11:45 | NUR ---
Pt given [place] 7.5mg PO for c/o 5/10 Rt hip pain. Pablo Ocasio. PT in room to work with patient.
--- NOTE | 2016-09-02 15:55 | NUR ---
Pt found sitting on the side of his bed on 2 l/min NC, SPO2 100%, HR 100, RR 18 and non labored at this time with clear BS before and after Duoneb via SVN which was tolerated well. Pt is preparing to be discharged this afternoon.
== END 2016-09-02 16:38 | disposition home or self-care (01) | DRG 189 ==
LOC: MED/SURG 11:23
PROVIDERS: ADMIT Internal Medicine; ATTEND Internal Medicine
DX: J96.21 Acute and chronic respiratory failure with hypoxia (principal); J44.1 Chronic obstructive pulmonary disease with (acute) exacerbation; I50.32 Chronic diastolic (congestive) heart failure; Z66 Do not resuscitate; I27.2 Other secondary pulmonary hypertension; I11.0 Hypertensive heart disease with heart failure; I25.10 Atherosclerotic heart disease of native coronary artery without angina pectoris; F32.9 Major depressive disorder, single episode, unspecified; K21.9 Gastro-esophageal reflux disease without esophagitis; Z99.81 Dependence on supplemental oxygen
CPT/HCPCS: 36415; 80048; 85025; 94640; 94760

== ENCOUNTER → 2016-09-14 | Outpatient (CLI) | payer MEDICARE, OTHER ==
[~2016-09-14] MED LIST: BUPIVACAINE 0.25% (MARCAINE) 30 ML VIAL ONE; methylPREDNISolone 80 MG/ML (DEPO MEDROL) VIAL IM ONE
== END ==
LOC: RAD 10:07
PROVIDERS: ATTEND Orthopaedic Surgery
DX: Z51.81 Encounter for therapeutic drug level monitoring (principal); Z79.01 Long term (current) use of anticoagulants; M16.11 Unilateral primary osteoarthritis, right hip
CPT/HCPCS: 20610; 36415; 77002; 85610; 85730; J1040; Q9967

== ENCOUNTER 2016-11-24 18:25 | Emergency (ER) | payer MEDICARE, OTHER ==
[~2016-11-24] VITALS: Ht 160 cm; Wt 65.8 kg
[~2016-11-24 18:25] MED LIST changes: +AC325T PO; +ALB.5NB20; +ALBU2.5V12 INH; +ALBU2.5V4 INH; +ALFU10TA11 PO; +ASPI81TA55 PO; +BUDE6HFA INH; -BUPIVACAINE 0.25% (MARCAINE) 30 ML VIAL ONE; +CALC300T10 PO; +DOCU100C8 PO; +DOXY100T41 PO; +Docusate Sodium PO; +ESOM20CA PO; +FNST5T PO; +FRSM20T PO; +GFN600TCR PO; +GUAI600T3; +HYDR-3811 PO; +INDM25C; +KCL20TCR PO; +LEVO750T39 PO; +LOSA50TA2 PO; +MAG30ORA PO; +MAGN400O7 PO; +METH4TAB27 PO; +MONT10TA21 PO; +MULT-116 PO; +NF-VITB12 PO; +NFLOSA25TA PO; +OXYGEN; +POLY17PO2 PO; +ROSU10TA PO; +SERT50TA; +TAMS0.4C2; +UBID10CA5 PO; -methylPREDNISolone 80 MG/ML (DEPO MEDROL) VIAL IM ONE
[2016-11-24] MEDS ORDERED: SODIUM CHLORIDE FLUSH 3 ML SYR IV PRN (19:10)
[2016-11-24] MEDS ORDERED: FUROSEMIDE 20 MG/2 ML (LASIX) VIAL IV ONE (19:15)
[2016-11-24 19:33] LABS: BASOPHILS % (AUTO) 0 % (0-2); EOSINOPHILS # (AUTO) 0.1 10^3uL; EOSINOPHILS % (AUTO) 2 % (0-4); LYMPHOCYTES # (AUTO) 1.1 X10^3; MEAN CORPUSCULAR HEMOGLOBIN 30.7 PG (26.0-34.0); MEAN CORPUSCULAR HGB CONC 32.4 g/dL (31.0-37.0); MEAN CORPUSCULAR VOLUME 95 FL (80-100); MEAN PLATELET VOLUME 10.5 FL (6.0-9.5); MONOCYTES # (AUTO) 0.8 X10^3; MONOCYTES % (AUTO) 12 % (3-11); NEUTROPHILS # (AUTO) 4.7 X10^3; NEUTROPHILS % (AUTO) 69 % (51-67); PLATELET COUNT 197 10^3uL (150-450); WHITE BLOOD COUNT 6.76 10^3uL (4.0-11.0)
[2016-11-24] MEDS: SODIUM CHLORIDE FLUSH 10 ML SYR IV PRN ×2 (19:35→19:36)
[2016-11-24 19:40] LABS: ALBUMIN 4.4 g/dL (3.4-5.0); ANION GAP 14.8 MEQ/L (3-15); CALCULATED IONIZED CALCIUM 4.2 mg/dL (3.8-4.6); TOTAL PROTEIN 7.3 g/dL (6.4-8.5)
[2016-11-24 21:08] LABS: BILIRUBIN,URINE Negative (Negative); CLARITY,URINE Clear; COLOR,URINE Yellow; GLUCOSE, URINE (UA) Negative (Negative); LEUKOCYTE ESTERASE ,URINE Negative (Negative); UROBILINOGEN,URINE 0.2 mg/dL (0.2-1.0)
[2016-11-24 21:25] VITALS: BP 99/70
--- NOTE | 2016-11-25 07:47 | Diagnostic Imaging Report ---
INDICATION: Shortness of breath. TECHNIQUE: Single view chest 7:47 PM. CORRELATION STUDY: 08/25/2016 FINDINGS: Heart size enlarged but stable. Tortuous course of the thoracic aorta with calcification of the aortic arch. Chronic-type changes of the lung parenchyma are noted. Lungs demonstrate no infiltrate. Emphysematous changes are present. There is a small approximately 1-cm nodule in the right mid lung. Advanced degenerative changes of the bilateral shoulders, likely rotator cuff surgery on the right. IMPRESSION: 1. Cardiac enlargement without failure. 2. Chronic changes of the lung parenchyma, likely changes of COPD. Superimposed nodule of the right mid lung is present. This finding is nonspecific, and the possibility of neoplasm is not excluded at this time. Either continued short-term followup 2-view chest imaging or CT imaging would be recommended. Report was stat faxed to ER @ [facility]; ALYSSA Kirk, @ 7:46 AM/jojo. Dictated by: Dictated on workstation # [id number]
== END 2016-11-24 21:27 | disposition home or self-care (01) ==
LOC: ED 18:27
DX: I50.9 Heart failure, unspecified (principal); R06.00 Dyspnea, unspecified
CPT/HCPCS: 36415; 71010; 80053; 81003; 82550; 82553; 83735; 83880; 84484; 85025; 85610; 85730; 93005; 96374; 99285; J1940; 93010